=== PATIENT | female | born 1970 | race Caucasian/White ===

== ENCOUNTER 2017-03-20 07:22 | Day surgery (SDC) | payer OTHER ==
[~2017-03-20] VITALS: Ht 165.1 cm; Wt 93.6 kg
[2017-03-20 07:34] VITALS: Ht 165.1 cm; Wt 93.6 kg
--- NOTE | 2017-03-20 08:54 | SIPON ---
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
[2017-03-20 09:45] VITALS: BP 193/111; PULSE 78; RESP 18
--- NOTE | 2017-03-20 17:09 | CARRPT ---
DATE OF PROCEDURE: 03/20/2017 TYPE OF PROCEDURE: 1. Left heart catheterization. 2. Coronary angiography. 3. Left ventriculogram. 4. Right heart catheterization. 5. Moderate Consious Seadtion ATTENDING PHYSICIAN: Melissa Felder MD. INDICATIONS: Status post seizure and subsequent cardiac arrest. Assess cardiac hemodynamics and vasculature for possible [facility] organ donation. BRIEF HISTORY: Ms. Arrington is a 46-year-old female who had suffered a seizure and found to have suffered an intracranial hemorrhage and then had subsequent cardiac arrest. The patient has now been brought to the [facility] in order to assess her hemodynamics and cardiac vasculature for possible [facility] organ donation. PROCEDURE PERFORMED: The patient was prepped and draped in the usual sterile fashion. The patient's right femoral artery was cannulated using the modified Seldinger technique and a 7 Pakistani venous sheath was placed. Subsequently, using the modified Seldinger technique, the patient's left femoral artery was cannulated and a 6-Pakistani arterial sheath was placed. A 7-[place]-Lamxi catheter was passed up the IVC into the RA, RV, PA and finally pulmonary capillary wedge position with the use of 0.025 wire. Pressures were obtained in each subsequent chamber. Cardiac output was determined by thermal dilution method and the [place]-Laxmi catheter was removed. Subsequently, at this time a JL4 catheter was used to cannulate the left main coronary ostium. With contrast injection, multiple views of the left coronary arterial system were obtained. JL4 was removed over a guidewire and a JR4 was used to cannulate the right coronary arterial ostium. With contrast injection, multiple views of the right coronary system were obtained. JR4 was removed over a guidewire and a 6- Pakistani pigtail was passed up the aorta down the ascending aorta across the aortic valve into the LV. Left ventricular end-diastolic pressure was measured. Using a power injector, 20 mL of contrast were injected opacifying the left ventricle and then pulled back across the aortic valve to assess for significant gradient which there was not and removed. Subsequently, this completed the procedure. The patient's venous and arterial sheaths were sutured in place. This completed the procedure. There were no noted complications. FINDINGS: 1. Coronary angiography: Left main 4 mm, no significant stenoses. Circumflex proximally is a 3 mm vessel with a 30% focal stenosis. The remainder of the circumflex is free of significant focal stenoses. A mid branching obtuse marginal 2 mm stenosis. No significant stenoses. The LAD proximally is a 3.5 mm vessel and shortly after its takeoff has a tubular 30% stenosis. The remainder of the LAD thereafter is free of significant focal stenoses around the apex. There are 2 mid branching diagonals, each sub 2 mm vessels, with no significant focal stenoses. The right coronary artery proximally is a 3 mm vessel and has no significant focal stenosis throughout its entirety. Dominant vessel gives off a 2 mm PDA, 2 mm posterolateral branch each with no significant focal stenoses. 2. Left ventriculogram revealed a left ventricular ejection fraction approximately 45% to 50% with very mild anterolateral hypokinesis, left ventricular end diastolic pressure, 22 to pre-LV gram, 23 post-LV gram No significant aortic stenosis by gradient. 3. Right heart catheterization revealed a right atrial pressure of 19 and right ventricular pressure 33/12, PA pressure 32/19, pulmonary capillary wedge pressure of 22. Cardiac output 4.1, a cardiac index of 1.6. TOTAL FLUOROSCOPY TIME: 8.3 minutes. TOTAL CONTRAST: 50 mL. IMPRESSION: 1. Mild nonobstructive coronary artery disease. 2. Mildly depressed left ventricular systolic function with wall motion abnormalities as above. 3. Mildly elevated left heart filling pressures. 4. No significant aortic stenosis by gradient. 5. Low normal cardiac output. RECOMMENDATIONS: At this time, the patient will be transferred back to [facility] for consideration of possible organ donation. Dictated By: MELISSA MCLEOD/GUANAKITO Conf#: [id number] DID#: [id number] MTDD
== END 2017-03-20 09:59 | disposition short-term general hospital (02) ==
LOC: SDS 07:22
PROVIDERS: ATTEND Internal Medicine
DX: I46.9 Cardiac arrest, cause unspecified (principal); I25.10 Atherosclerotic heart disease of native coronary artery without angina pectoris; R56.9 Unspecified convulsions; I60.9 Nontraumatic subarachnoid hemorrhage, unspecified
CPT/HCPCS: 93460; C1769; C1887; C1894; 93453